=== PATIENT | female | born 1950 | race Caucasian/White ===

== ENCOUNTER 2016-08-31 12:30 | Emergency (ER) | payer OTHER ==
[2016-08-31 12:39] VITALS: BP 198/92; PULSE 97; RESP 17; TEMP 97.7; O2SAT 94
--- NOTE | 2016-08-31 13:04 | UCPHY ---
H & P Time Seen by Provider: 08/31/16 12:52 Patient Type: New HPI/ROS: Patient describes itching to the right upper thorax yesterday with an onset of blister rash consistent with prior shingles today. She reports 3/10 burning discomfort associated with the symptoms. She notes no other associated symptoms. No exacerbating or alleviating factors. She has not taken any medications for it. ROS: No fevers or chills. HEENT: No symptoms. Pulmonary: No complaints neuro : No headache. No recent illnesses though she reports exposure to strep she has no sore throat. 7 point ROS is otherwise negative. Past Medical/Surgical History: Chickenpox as a child 1 previous episode of zoster 10 years ago Dyslipidemia Smoking Status: Never smoked Physical Exam: Physical Exam Vital signs are normal. General: No acute distress Eyes: Pupils equal and react to light. Extraocular motions are intact. Lungs: No respiratory distress. Cardiac: Brisk capillary refill is intact throughout. Skin: The patient has erythematous papules and vesicles to the right posterior thorax just inferior to the scapula that wrap around in a dermatomal distribution to her chest. No petechia or purpura. Neuro: Alert Initial differential diagnosis: Zoster, contact dermatitis Constitutional: Initial Vital Signs Temperature (C) 36.5 C 08/31/16 12:37 Heart Rate 97 08/31/16 12:37 Respiratory Rate 17 08/31/16 12:37 Blood Pressure 198/92 H 08/31/16 12:37 O2 Sat (%) 94 08/31/16 12:37 O2 Delivery Mode Room Air Allergies/Adverse Reactions: erythromycin base Allergy (Verified 08/31/16 12:36) erythromycin lactobionate [From Erythrocin] Allergy (Verified 08/31/16 12:36) Home Medications: Medication Instructions Recorded Lipitor 08/31/16 Lotrel 10-20 mg 08/31/16 Valacyclovir HCl [Valtrex] 1,000 mg PO TID #21 tab 08/31/16 MDM/Departure - MDM ED Course/Re-evaluation: Discussion: Patient appears well with normal vitals without constitutional symptoms or evidence of complication with zoster. - Depart Disposition: Home, Routine, Self-Care Clinical Impression: Zoster Qualifiers: Herpes zoster complications: without complications Qualified Code(s): B02.9 - Zoster without complications Condition: Good Instructions: Shingles (ED) Additional Instructions: Diagnosis: Zoster Plan: Valtrex antiviral medication as prescribed Ibuprofen and Tylenol for discomfort as needed. Return for any significant worsening despite the treatment plan Prescriptions: Valacyclovir HCl [Valtrex] 1,000 mg PO TID #21 tab Referrals: Kelly Henry PA [Primary Care Provider] - As per Instructions - PQRS PQRS Measurement: 134: Depression screening and followup, PRIME MD-PHQ2 (12 years and older) Over the last 2 weeks, how often have you been bothered by any of the following problems? 1. Feeling down, depressed, or hopeless? 2. Little interest or pleasure in doing things? Patient answered no to both 1 and 2 130: Documentation of medications. Reviewed all patient medications, doses, route and frequency. 226: Do you smoke? [No.] 47: 65 and older: Advanced care planning. Patient designates surrogate decision maker as spouse 51: 18 years old and older with diagnosis of COPD, spirometry performance. NA 52: 18 years old and older with COPD and symptoms of COPD or FEV1<60% predicted prescribed a B Agonist. NA
== END 2016-08-31 13:14 | disposition home or self-care (01) ==
LOC: CED 12:30
DX: B02.9 Zoster without complications (principal); E78.5 Hyperlipidemia, unspecified
CPT/HCPCS: G0463-PO